=== PATIENT | female | born 1965 ===

== ENCOUNTER 2022-07-25 11:25 | Emergency (ER) | payer OTHER, SELFPAY ==
[2022-07-25] VITALS (8 sets, daily range): BP systolic 134–186; BP diastolic 64–86; PULSE 75–85; RESP 18–22; TEMP 36.6; O2SAT 96–98; BMI 27.3
--- NOTE | 2022-07-25 11:39 | DI.RAD.S_ITS ---
PROCEDURE: XR CHEST 1V INDICATIONS: Shortness of breath TECHNIQUE: One view of the chest was acquired. COMPARISON: None. FINDINGS: Surgical changes and devices: None. Lungs and pleura: Lungs are clear. No pleural effusions or pneumothorax. Mediastinum: Mediastinal contours appear normal. Heart size is normal. Bones and chest wall: No suspicious bony lesions. Overlying soft tissues appear unremarkable. IMPRESSION: No acute cardiopulmonary abnormality. Dictated by: Miguel Acosta M.D. on 07/25/2022 at 12:26 Approved by: Miguel Acosta M.D. on 07/25/2022 at 12:27
[2022-07-25 12:07] LABS: Add Manual Diff / Slide Review NO; Basophils Absolute Auto 0 /uL (0-100); Basophils Percent Auto 0.7 % (0-2); Eosinophils Absolute Auto 300 /uL (0-450); Eosinophils Percent Auto 4.5 % (2-4); Hematocrit 38.1 % (36-46); Hemoglobin 12.6 g/dL (12.0-16.0); Lymphocytes Absolute Auto 1500 /uL (1100-4500); Lymphocytes Percent Auto 21.6 % (25-40); Mean Corpuscular Hemoglobin 30.4 PG (26-34); Mean Corpuscular Volume 92.2 fL (80-100); Monocytes Absolute Auto 600 /uL (0-900); Monocytes Percent Auto 8.3 % (3-14); Neutrophils Absolute Auto 4600 /uL (1500-7000); Neutrophils Percent Auto 64.9 % (50-75); Platelet Count 278 X10^3/uL (150-400); Red Blood Cell Count 4.13 X10^6/uL (4.0-5.2); White Blood Cell Count 7.1 X10^3/uL (4.5-11.0)
[2022-07-25 12:17] LABS: Prothrombin Time 11.3 SECONDS (10.1-12.7)
[2022-07-25 12:21] LABS: Alanine Aminotransferase 26 IU/L (<35); Albumin 4.5 g/dL (3.5-5.0); Albumin Globulin Ratio 1.3 (1.0-2.8); Alkaline Phosphatase 84 U/L (38-126); Aspartate Aminotransferase 26 IU/L (14-36); Bilirubin Total 0.5 mg/dL (0.2-1.3); Blood Urea Nitrogen 15 mg/dL (7-17); Calcium 9.4 mg/dL (8.4-10.2); Carbon Dioxide 30 mmol/L (22-32); Chloride 104 mmol/L (98-107); Estimated Glomerular Filt Rate > 60 mL/min (>60); Globulin 3.6 g/dL (1.7-4.1); Glucose 93 mg/dL (70-100); HEMOLYSIS 26 (0-50); Lactate (Lactic Acid) 1.9 mmol/L (0.7-2.1); Potassium 3.9 mmol/L (3.4-5.1); Sodium 142 mmol/L (137-145); Total Protein 8.1 g/dL (6.3-8.2)
[2022-07-25 12:33] LABS: NT-proBNP (BNP-Adult 18+) 47 pg/mL (<125); Troponin I < 0.012 ng/mL (0.01-0.034)
[2022-07-25 12:49] LABS: Influenza A - CEPHEID Flu A NEGATIVE (NEGATIVE); Influenza B - CEPHEID Flu B NEGATIVE (NEGATIVE); Respiratory Syncytial Virus Negative (Negative)
[2022-07-25 12:50] LABS: COVID-19 CEPHEID 4-PLEX PCR Negative (Negative)
--- NOTE | 2022-07-25 14:25 | ED_ITS ---
HPI - Chest Pain General Chief Complaint: Chest Pain Stated Complaint: chest pain, cold and cough Time Seen by Provider: 07/25/22 11:58 Source: patient Mode of arrival: Ambulatory Limitations: no limitations History of Present Illness HPI narrative: Patient is a 57-year-old female history diabetes hypertension hyperlipidemia presenting today with chest pain and cough. She reports coughing for the last 2 days she is not coughing anything. Her cough is definitely worse night. She feels like she has pain every time she coughs, her cough has show bad that she can not sleep. She denies any significant shortness of breath. Nausea vomiting or abdominal pain. Related Data Home Medications Medication Instructions Recorded Confirmed amlodipine 10 mg tablet 10 mg PO DAILY 09/11/20 10/09/20 aspirin 81 mg tablet,delayed 81 mg PO DAILY 09/11/20 10/09/20 release atorvastatin 20 mg tablet 20 mg PO DAILY 09/11/20 10/09/20 metformin 1,000 mg tablet 1,000 mg PO BID 09/11/20 10/09/20 telmisartan 80 mg tablet (Micardis) 80 mg PO DAILY 09/11/20 10/09/20 Previous Rx's Medication Instructions Recorded albuterol sulfate 90 mcg/actuation 2 puff inhalation Q4-6H PRN 07/25/22 aerosol inhaler shortness of breath or wheezing #8.5 grams guaifenesin 600 mg tablet, 600 mg PO Q12H PRN cough #30 tabs 07/25/22 extended release 12 hr hydrocodone-homatropine 5 mg-1.5 5 ml PO Q6H PRN cough #100 mL 07/25/22 mg/5 mL (5 mL) oral syrup Allergies Allergy/AdvReac Type Severity Reaction Status Date / Time No Known Drug Allergies Allergy Unverified 10/09/20 12:58 Review of Systems Review of Systems ROS Unobtainable: All systems reviewed & are unremarkable except as noted in HPI and below Patient History Social History marital status: unknown household members: family Smoking Status: Never smoker alcohol intake: never substance use type: does not use Smoking Status: Never smoker alcohol intake frequency: 0-2 drinks per day Substance Use Type: does not use Exam Initial Vital Signs Initial Vital Signs: Vital Signs Temperature 97.9 F 07/25/22 11:29 Pulse Rate 78 07/25/22 11:29 Respiratory Rate 20 07/25/22 11:29 Blood Pressure 186/86 H 07/25/22 11:29 Pulse Oximetry 98 07/25/22 11:29 Oxygen Delivery Method Room Air 07/25/22 11:29 GENERAL: Alert pleasant 57-year-old female and in no acute distress. HEENT: Head atraumatic,EOMI, pupils reactive, face symmetric, moist mucous membranes CARDIOVASCULAR: Regular rate and rhythm without murmurs, rubs or gallops. RESPIRATORY: Breath sounds equal bilaterally, no wheezes rales or rhonchi. ABDOMEN: Soft, nontender. Normoactive bowel sounds all 4 quadrants. No guarding or rebound. EXTREMITIES: Normal range of motion, no clubbing or edema. Neurovascularly intact NEUROLOGICAL: Alert and oriented x4.Normal gait and speech. SKIN: Warm, dry, no laceration, no petechiae, no rashes or lesions. Scores HEART Score Heart Score history: Slightly Suspicious Heart Score EKG: Normal Heart Score Age: 45-64 years old Heart Score risk factors: > 3 risk factors or hx of atherosclerotic disease Heart Score troponin: < or = to normal limit Heart Score Total: 3 Course Orders Ordered: ED Orders 07/25/22 11:39 XR chest 1V Stat EKG-12 Lead Stat Measure peak expiratory flow ONCE RT Consult Eval and Treat NOW 07/25/22 11:41 Covid-19 + FLU A/B + RSV - PCR Stat 07/25/22 11:58 Complete Blood Count AUTO DIFF Stat Comprehensive Metabolic Panel Stat Lactate (Lactic Acid) Stat NT-proBNP (BNP-Adult 18+) Stat Prothrombin Time INR Stat Troponin I Stat 07/25/22 14:06 Trop I [Troponin I] Stat Vital Signs Vital signs: Vital Signs - 8 hr 07/25/22 12:30 07/25/22 12:30 07/25/22 13:00 Pulse Rate 79 Respiratory Rate 22 Blood Pressure 143/76 H 134/64 Pulse Oximetry 98 Oxygen Delivery Method 07/25/22 13:00 07/25/22 13:30 07/25/22 13:30 Pulse Rate 76 75 Respiratory Rate 21 22 Blood Pressure 137/70 Pulse Oximetry 96 97 Oxygen Delivery Method 07/25/22 14:00 07/25/22 14:00 07/25/22 14:30 Pulse Rate 78 Respiratory Rate 22 Blood Pressure 142/73 H 138/74 Pulse Oximetry 97 Oxygen Delivery Method 07/25/22 14:30 07/25/22 15:51 Pulse Rate 75 84 Respiratory Rate 21 18 Blood Pressure Pulse Oximetry 98 97 Oxygen Delivery Method Room Air MDM - Chest Pain Lab Data 07/25/22 11:58 07/25/22 11:58 Labs: Lab Results 07/25/22 07/25/22 07/25/22 Range/Units 11:41 11:58 11:58 WBC 7.1 (4.5-11.0) X10^3/uL RBC 4.13 (4.0-5.2) X10^6/uL Hgb 12.6 (12.0-16.0) g/dL Hct 38.1 (36-46) % MCV 92.2 (80-100) fL MCH 30.4 (26-34) PG MCHC 33.0 (30-36) % RDW 13.0 (11.6-14.8) % Plt Count 278 (150-400) X10^3/uL Neut % (Auto) 64.9 (50-75) % Lymph % (Auto) 21.6 L (25-40) % [place] % (Auto) 8.3 (3-14) % Eos % (Auto) 4.5 H (2-4) % Baso % (Auto) 0.7 (0-2) % Neut # (Auto) 4600 (5988-1404) /uL Lymph # (Auto) 1500 (7515-0456) /uL [place] # (Auto) 600 (0-900) /uL Eos # (Auto) 300 (0-450) /uL Baso # (Auto) 0 (0-100) /uL PT 11.3 (10.1-12.7) SECONDS INR 1.0 (0.9-1.3) Sodium (137-145) mmol/L Potassium (3.4-5.1) mmol/L Chloride (98-107) mmol/L Carbon Dioxide (22-32) mmol/L BUN (7-17) mg/dL Creatinine (0.52-1.04) mg/dL Estimated GFR (>60) mL/min BUN/Creatinine Ratio (6-22) Glucose (70-100) mg/dL Lactate (0.7-2.1) mmol/L Calcium (8.4-10.2) mg/dL Total Bilirubin (0.2-1.3) mg/dL AST (14-36) IU/L ALT (<35) IU/L Alkaline Phosphatase (38-126) U/L Troponin I (0.01-0.034) ng/mL NT-Pro-B Natriuret Pep (<125) pg/mL Total Protein (6.3-8.2) g/dL Albumin (3.5-5.0) g/dL Globulin (1.7-4.1) g/dL Albumin/Globulin Ratio (1.0-2.8) SARS-CoV-2 (PCR) Negative (Negative) Influenza A (RT-PCR) Flu a negative (NEGATIVE) Influenza B (RT-PCR) Flu b negative (NEGATIVE) RSV (PCR) Negative (Negative) 07/25/22 07/25/22 07/25/22 Range/Units 11:58 11:58 14:06 WBC (4.5-11.0) X10^3/uL RBC (4.0-5.2) X10^6/uL Hgb (12.0-16.0) g/dL Hct (36-46) % MCV (80-100) fL MCH (26-34) PG MCHC (30-36) % RDW (11.6-14.8) % Plt Count (150-400) X10^3/uL Neut % (Auto) (50-75) % Lymph % (Auto) (25-40) % [place] % (Auto) (3-14) % Eos % (Auto) (2-4) % Baso % (Auto) (0-2) % Neut # (Auto) (5299-6437) /uL Lymph # (Auto) (2520-8115) /uL [place] # (Auto) (0-900) /uL Eos # (Auto) (0-450) /uL Baso # (Auto) (0-100) /uL PT (10.1-12.7) SECONDS INR (0.9-1.3) Sodium 142 (137-145) mmol/L Potassium 3.9 (3.4-5.1) mmol/L Chloride 104 (98-107) mmol/L Carbon Dioxide 30 (22-32) mmol/L BUN 15 (7-17) mg/dL Creatinine 0.50 L (0.52-1.04) mg/dL Estimated GFR > 60 (>60) mL/min BUN/Creatinine Ratio 30.0 H (6-22) Glucose 93 (70-100) mg/dL Lactate 1.9 (0.7-2.1) mmol/L Calcium 9.4 (8.4-10.2) mg/dL Total Bilirubin 0.5 (0.2-1.3) mg/dL AST 26 (14-36) IU/L ALT 26 (<35) IU/L Alkaline Phosphatase 84 (38-126) U/L Troponin I < 0.012 < 0.012 (0.01-0.034) ng/mL NT-Pro-B Natriuret Pep 47 (<125) pg/mL Total Protein 8.1 (6.3-8.2) g/dL Albumin 4.5 (3.5-5.0) g/dL Globulin 3.6 (1.7-4.1) g/dL Albumin/Globulin Ratio 1.3 (1.0-2.8) SARS-CoV-2 (PCR) (Negative) Influenza A (RT-PCR) (NEGATIVE) Influenza B (RT-PCR) (NEGATIVE) RSV (PCR) (Negative) Imaging Data Chest x-ray: Radiologist's Impression: PROCEDURE:? XR CHEST 1V ? INDICATIONS:? Shortness of breath ? TECHNIQUE:? One view of the chest was acquired.? ? COMPARISON:? None. ? FINDINGS:? ? Surgical changes and devices:? None.? ? Lungs and pleura:? Lungs are clear.? No pleural effusions or pneumothorax.? ? Mediastinum:? Mediastinal contours appear normal.? Heart size is normal.? ? Bones and chest wall:? No suspicious bony lesions.? Overlying soft tissues appear unremarkable.? ? IMPRESSION:? No acute cardiopulmonary abnormality. ? ? ? Dictated by: Miguel Acosta M.D. on 07/25/2022 at 12:26 ? ? ECG Data Interpretation: Normal sinus rhythm rate 79 MO interval 160 QRS [address] changes no T- wave inversions Q-waves noted in lead 3, no priors to compare MDM Narrative Medical decision making narrative: Recent 57 old female history of hypertension diabetes hyperlipidemia presenting today with cough and chest pain. She has had nonproductive cough ongoing for the last 2-3 days worse at night. No evidence of sepsis or infection. Blood work is overall reassuring 2- troponins no EKG changes chest x-ray does not show any abnormality. No need for antibiotics. Probable viral syndrome. Pulmonary embolism was considered however seems unlikely given cough and infectious like symptoms. Supportive care only. Discharge Plan Departure Patient Disposition: Home Clinical Impression: Upper respiratory infection Instructions: DI for Viral Upper Respiratory Infection -- Adult Activity Restrictions/Additional Instructions: *You have been diagnosed with upper respiratory infection *What to do: At this time you likely have a viral infection there is no need for antibiotics. Rest and hydrate. *Continue to take medications as directed--> SENT TO [facility] Guaifenesin 600 mg every 12 hours Albuterol 1-2 puffs with spacer if needed for coughing spell Cough syrup 5 mL every 6 hours only as needed for severe coughing or at nighttime to help you sleep *Follow up with your primary care provider in 2-3 days or call [phone] *Return to ER if you should have increasing shortness of breath, worsening cough, fever[or] any new, worsening or concerning symptoms CONTROLLED SUBSTANCE DISCHARGE (Narcotoic/benzodiazepine/Flexeril/Phenergan) 1. You have been prescribed narcotic medications, it does have acetaminophen/Tylenol/paracetamol in it, DO NOT TAKE MORE THAN 4,00mg in 24 hours of Tylenol. TRAMADOL DOES NOT CONTAIN TYLENOL 2. Please understand that we cannot provide further refills of narcotics, benzodiazepines or controlled substances through the ED and her pain management will need to be through your provider. 3. While on these medications you cannot drive or operate heavy machinery. 4. You cannot sign legal documents or perform any duties such as this. 5. As long as you're taking opiate pain medications he should also be taking a stool softener such as Colace, Dulcolax, MiraLAX or prune juice, to help avoid constipation. Prescriptions: New hydrocodone-homatropine 5-1.5 mg/5 mL (5 mL) syrup 5 ml PO Q6H PRN (Reason: cough) Qty: 100 0RF guaifenesin 600 mg tablet extended release 12hr 600 mg PO Q12H PRN (Reason: cough) Qty: 30 0RF albuterol sulfate 90 mcg/actuation HFA aerosol inhaler 2 puff inhalation Q4-6H PRN (Reason: shortness of breath or wheezing) Qty: 8.5 0RF No Action metformin 1,000 mg tablet 1,000 mg PO BID telmisartan [Micardis] 80 mg tablet 80 mg PO DAILY amlodipine 10 mg tablet 10 mg PO DAILY atorvastatin 20 mg tablet 20 mg PO DAILY aspirin 81 mg tablet,delayed release (DR/EC) 81 mg PO DAILY Stand Alone Forms: Patient Portal/API, Work Release Note
[2022-07-25 14:45] LABS: Troponin I < 0.012 ng/mL (0.01-0.034)
== END 2022-07-25 16:01 | disposition home or self-care (01) ==
PROVIDERS: Emergency Provider Emergency Medicine
DX: J06.9 Acute upper respiratory infection, unspecified (principal); R05.9 Cough, unspecified; R06.02 Shortness of breath; Z20.822 Contact with and (suspected) exposure to COVID-19
CPT/HCPCS: 0241U; 36415; 71045; 80053; 83605; 83880; 84484; 85025; 85610; 93005; 99283; 99284

== ENCOUNTER 2022-08-09 10:51 | Emergency (ER) | payer OTHER, SELFPAY ==
[2022-08-09] VITALS (8 sets, daily range): BP systolic 117–147; BP diastolic 56–77; PULSE 74–92; RESP 16–18; TEMP 36.3; O2SAT 96–99; BMI 29.2
--- NOTE | 2022-08-09 11:20 | ED.GENADULT ---
HPI - General Adult General Chief complaint: Dizziness Stated complaint: dizzy/V T-2 Time Seen by Provider: 08/09/22 11:03 Source: patient Mode of arrival: Ambulatory History of Present Illness HPI narrative: Patient is a 57-year-old female who is here for evaluation of dizziness and vomiting. She states it has been going on for the past 2 days. Mostly in the morning. She did vomit yesterday but not today. She states that it did wake her up from sleep. After she vomited yesterday her symptoms improved. She did not have chest pain or palpitations or headache or vision changes or speech difficulties or numbness and tingling in her upper extremities. When the symptoms occurred this morning she tried to contact her primary doctor told her to come to the emergency department. Currently she states she does feel somewhat dizzy but it is improved. She has no other associated symptoms. Has never had this in the past. Related Data Home Medications Medication Instructions Recorded Confirmed amlodipine 10 mg tablet 10 mg PO DAILY 09/11/20 10/09/20 aspirin 81 mg tablet,delayed 81 mg PO DAILY 09/11/20 10/09/20 release atorvastatin 20 mg tablet 20 mg PO DAILY 09/11/20 10/09/20 metformin 1,000 mg tablet 1,000 mg PO BID 09/11/20 10/09/20 telmisartan 80 mg tablet (Micardis) 80 mg PO DAILY 09/11/20 10/09/20 Previous Rx's Medication Instructions Recorded albuterol sulfate 90 mcg/actuation 2 puff inhalation Q4-6H PRN 07/25/22 aerosol inhaler shortness of breath or wheezing #8.5 grams guaifenesin 600 mg tablet, 600 mg PO Q12H PRN cough #30 tabs 07/25/22 extended release 12 hr hydrocodone-homatropine 5 mg-1.5 5 ml PO Q6H PRN cough #100 mL 07/25/22 mg/5 mL (5 mL) oral syrup meclizine 25 mg tablet 25 mg PO BID PRN dizziness #14 tabs 08/09/22 Allergies Allergy/AdvReac Type Severity Reaction Status Date / Time No Known Drug Allergies Allergy Unverified 10/09/20 12:58 Review of Systems Constitutional Constitutional: Reports system reviewed and no additional complaints, except as documented Cardiovascular Cardiovascular: Reports system reviewed and no additional complaints, except as documented Respiratory Respiratory: Reports system reviewed and no additional complaints, except as documented Gastrointestinal Gastrointestinal: Reports system reviewed and no additional complaints, except as documented Integumentary/Breasts Skin/Breast: Reports system reviewed and no additional complaints, except as documented Neurologic Neurologic: Reports system reviewed and no additional complaints, except as documented Hematologic/Lymphatic On Anticoagulants: No Patient History Social History marital status: unknown household members: family Smoking Status: Never smoker alcohol intake: never substance use type: does not use Smoking Status: Never smoker alcohol intake frequency: 0-2 drinks per day Substance Use Type: does not use Exam Initial Vital Signs Initial Vital Signs: Vital Signs Pulse Rate 92 H 08/09/22 10:56 Pulse Oximetry 96 08/09/22 10:56 HENMT Head: normal to inspection and normocephalic Resp Effort & Inspection: normal respiratory effort Auscultation: clear to auscultation bilaterally Cardio Rate: regular rate Rhythm: regular rhythm GI Inspection: normal to inspection Palpation: soft and No tender Skin General: no rashes or lesions noted Neuro General: patient alert, patient awake, patient oriented x3 and moves all extremities Cranial Nerves: CN's II-XI intact bilaterally Speech: speech normal Gait: normal gait Other: [place]-Hallpike maneuver was positive to the right Extrem General: normal to inspection and capillary refill normal Psych Appearance: grossly normal and well kempt Course Orders Ordered: ED Orders 08/09/22 11:04 Basic Metabolic Panel Stat Complete Blood Count AUTO DIFF Stat Troponin & CK Cardiac Panel Stat 08/09/22 11:21 EKG-12 Lead Stat Discontinued Medications Meclizine HCl (Meclizine Hcl 12.5 Mg Tablet) 25 mg PO NOW ONE Stop: 08/09/22 11:21 Last Admin: 08/09/22 11:27 Dose: 25 mg Documented By: AT Vital Signs Vital signs: Vital Signs - 8 hr 08/09/22 11:03 08/09/22 10:56 08/09/22 10:57 Temperature 97.4 F L Pulse Rate 88 92 H Respiratory Rate 18 Blood Pressure 147/77 H 147/77 H Pulse Oximetry 99 96 Oxygen Delivery Method Room Air 08/09/22 10:57 08/09/22 11:00 08/09/22 11:30 Temperature Pulse Rate 81 89 Respiratory Rate Blood Pressure 118/64 Pulse Oximetry 97 97 Oxygen Delivery Method Room Air 08/09/22 11:30 08/09/22 12:00 08/09/22 12:00 Temperature Pulse Rate 87 79 Respiratory Rate Blood Pressure 119/56 L Pulse Oximetry 96 96 Oxygen Delivery Method Room Air Room Air 08/09/22 12:30 08/09/22 12:30 08/09/22 13:00 Temperature Pulse Rate 83 Respiratory Rate Blood Pressure 117/61 131/69 Pulse Oximetry 97 Oxygen Delivery Method Room Air 08/09/22 13:00 Temperature Pulse Rate 74 Respiratory Rate 16 Blood Pressure Pulse Oximetry 96 Oxygen Delivery Method Room Air Medical Decision Making Lab Data Lab results reviewed: Yes I reviewed the patient's lab results. 08/09/22 11:04 08/09/22 11:04 Labs: Lab Results 08/09/22 08/09/22 08/09/22 Range/Units 11:04 11:04 11:04 WBC 10.1 (4.5-11.0) X10^3/uL RBC 4.46 (4.0-5.2) X10^6/uL Hgb 13.5 (12.0-16.0) g/dL Hct 41.1 (36-46) % MCV 92.2 (80-100) fL MCH 30.4 (26-34) PG MCHC 32.9 (30-36) % RDW 13.2 (11.6-14.8) % Plt Count 308 (150-400) X10^3/uL Neut % (Auto) 82.4 H (50-75) % Lymph % (Auto) 11.8 L (25-40) % [place] % (Auto) 4.6 (3-14) % Eos % (Auto) 0.5 L (2-4) % Baso % (Auto) 0.7 (0-2) % Neut # (Auto) 8300 H (3427-0836) /uL Lymph # (Auto) 1200 (3622-6815) /uL [place] # (Auto) 500 (0-900) /uL Eos # (Auto) 100 (0-450) /uL Baso # (Auto) 100 (0-100) /uL Sodium 138 (137-145) mmol/L Potassium 3.9 (3.4-5.1) mmol/L Chloride 99 (98-107) mmol/L Carbon Dioxide 27 (22-32) mmol/L BUN 15 (7-17) mg/dL Creatinine 0.58 (0.52-1.04) mg/dL Estimated GFR > 60 (>60) mL/min BUN/Creatinine Ratio 25.9 H (6-22) Glucose 126 H (70-100) mg/dL Calcium 9.6 (8.4-10.2) mg/dL Total Creatine Kinase 84 (30-135) U/L CK-MB (CK-2) TNP CK-MB (CK-2) Rel Index TNP Troponin I < 0.012 (0.01-0.034) ng/mL ECG Data Attestation: I personally reviewed and interpreted this ECG as follows: Interpretation: Sinus rhythm Ventricular rate is 77 Normal axis Normal QRS Normal QTC No ST T wave changes MDM Narrative Medical decision making narrative: Patient states that she does have improvement of her symptoms after the meclizine. It is reproducible with a positive [place]-Hallpike to the right. I have low suspicion for central vertigo. Our suspicion that this is peripheral given the fact that it woke her from sleep and it is reproducible. Her labs are unremarkable. Will discharge home with meclizine. She was given return precautions. She expressed understanding and agreement. Discharge Plan Departure Patient Disposition: Home Clinical Impression: Vertigo Instructions: DI for Vertigo Activity Restrictions/Additional Instructions: I do recommend that you continue to take all of your medications as directed. Contact your primary doctor for follow-up. Return to the emergency department for any new or worsening symptoms. Prescriptions: New meclizine 25 mg tablet 25 mg PO BID PRN (Reason: dizziness) Qty: 14 0RF No Action metformin 1,000 mg tablet 1,000 mg PO BID telmisartan [Micardis] 80 mg tablet 80 mg PO DAILY amlodipine 10 mg tablet 10 mg PO DAILY atorvastatin 20 mg tablet 20 mg PO DAILY aspirin 81 mg tablet,delayed release (DR/EC) 81 mg PO DAILY hydrocodone-homatropine 5-1.5 mg/5 mL (5 mL) syrup 5 ml PO Q6H PRN (Reason: cough) Qty: 100 0RF guaifenesin 600 mg tablet extended release 12hr 600 mg PO Q12H PRN (Reason: cough) Qty: 30 0RF albuterol sulfate 90 mcg/actuation HFA aerosol inhaler 2 puff inhalation Q4-6H PRN (Reason: shortness of breath or wheezing) Qty: 8.5 0RF Referrals: ProviderDinesh [Primary Care Provider] - Stand Alone Forms: Patient Portal/API, Work Release Note
[2022-08-09] MEDS: MECLIZINE HCL 12.5 MG TABLET 25 MG PO (11:27)
[2022-08-09 11:28] LABS: Add Manual Diff / Slide Review NO; Basophils Absolute Auto 100 /uL (0-100); Basophils Percent Auto 0.7 % (0-2); Eosinophils Absolute Auto 100 /uL (0-450); Eosinophils Percent Auto 0.5 % (2-4); Hematocrit 41.1 % (36-46); Hemoglobin 13.5 g/dL (12.0-16.0); Lymphocytes Absolute Auto 1200 /uL (1100-4500); Lymphocytes Percent Auto 11.8 % (25-40); Mean Corpuscular HGB Conc 32.9 % (30-36); Mean Corpuscular Hemoglobin 30.4 PG (26-34); Mean Corpuscular Volume 92.2 fL (80-100); Monocytes Absolute Auto 500 /uL (0-900); Monocytes Percent Auto 4.6 % (3-14); Neutrophils Absolute Auto 8300 /uL (1500-7000); Neutrophils Percent Auto 82.4 % (50-75); Platelet Count 308 X10^3/uL (150-400); Red Blood Cell Count 4.46 X10^6/uL (4.0-5.2); Red Cell Distribution Width 13.2 % (11.6-14.8); White Blood Cell Count 10.1 X10^3/uL (4.5-11.0)
[2022-08-09 11:36] LABS: BUN Creatinine Ratio 25.9 (6-22); Blood Urea Nitrogen 15 mg/dL (7-17); Calcium 9.6 mg/dL (8.4-10.2); Carbon Dioxide 27 mmol/L (22-32); Chloride 99 mmol/L (98-107); Creatine Kinase 84 U/L (30-135); Estimated Glomerular Filt Rate > 60 mL/min (>60); Glucose 126 mg/dL (70-100); HEMOLYSIS 18 (0-50); Potassium 3.9 mmol/L (3.4-5.1); Sodium 138 mmol/L (137-145)
[2022-08-09 11:48] LABS: Troponin I < 0.012 ng/mL (0.01-0.034)
--- NOTE | 2022-08-09 12:35 | PC.NURSE ---
Pt reports improvement in dizziness since arrival.
== END 2022-08-09 13:28 | disposition home or self-care (01) ==
PROVIDERS: Emergency Provider Emergency Medicine
DX: R42 Dizziness and giddiness (principal); R03.0 Elevated blood-pressure reading, without diagnosis of hypertension
CPT/HCPCS: 36415; 80048; 82550; 84484; 85025; 93005; 93010; 99283

== ENCOUNTER 2022-08-12 09:24 | Emergency (ER) | payer OTHER, SELFPAY ==
[2022-08-12] VITALS (11 sets, daily range): BP systolic 107–146; BP diastolic 56–74; PULSE 62–88; RESP 18; TEMP 36.6; O2SAT 95–100
[2022-08-12 12:01] LABS: Add Manual Diff / Slide Review NO; Basophils Absolute Auto 100 /uL (0-100); Basophils Percent Auto 0.6 % (0-2); Eosinophils Absolute Auto 100 /uL (0-450); Eosinophils Percent Auto 0.6 % (2-4); Hemoglobin 13.2 g/dL (12.0-16.0); Lymphocytes Absolute Auto 1200 /uL (1100-4500); Lymphocytes Percent Auto 11.9 % (25-40); Mean Corpuscular Hemoglobin 31.2 PG (26-34); Mean Corpuscular Volume 91.8 fL (80-100); Monocytes Absolute Auto 500 /uL (0-900); Monocytes Percent Auto 5.2 % (3-14); Neutrophils Absolute Auto 8500 /uL (1500-7000); Neutrophils Percent Auto 81.7 % (50-75); Platelet Count 264 X10^3/uL (150-400); Red Blood Cell Count 4.24 X10^6/uL (4.0-5.2); White Blood Cell Count 10.5 X10^3/uL (4.5-11.0)
[2022-08-12 12:06] LABS: INR 1.1 (0.9-1.3); Prothrombin Time 12.1 SECONDS (10.1-12.7)
[2022-08-12 12:10] LABS: Alanine Aminotransferase 25 IU/L (<35); Albumin 4.5 g/dL (3.5-5.0); Albumin Globulin Ratio 1.3 (1.0-2.8); Alkaline Phosphatase 74 U/L (38-126); Aspartate Aminotransferase 22 IU/L (14-36); BUN Creatinine Ratio 28.1 (6-22); Blood Urea Nitrogen 16 mg/dL (7-17); Calcium 9.2 mg/dL (8.4-10.2); Carbon Dioxide 32 mmol/L (22-32); Chloride 97 mmol/L (98-107); Creatine Kinase 47 U/L (30-135); Estimated Glomerular Filt Rate > 60 mL/min (>60); Globulin 3.5 g/dL (1.7-4.1); Glucose 131 mg/dL (70-100); HEMOLYSIS < 15 (0-50); Potassium 4.1 mmol/L (3.4-5.1); Sodium 138 mmol/L (137-145)
[2022-08-12 12:22] LABS: Troponin I < 0.012 ng/mL (0.01-0.034)
--- NOTE | 2022-08-12 13:29 | ED_ITS ---
HPI - Dizziness General Chief Complaint: Dizziness Stated Complaint: Vertigo & weakness Time Seen by Provider: 08/12/22 12:08 Source: patient and EMS Mode of arrival: EMS History of Present Illness HPI Narrative: 57-year-old female presenting with vertiginous symptoms and generalized weakness/lightheadedness. Patient reports prior similar episodes have occurred, most recently days prior to presentation where she was evaluated in the em ergency department. Patient denies focal weakness or numbness, no difficulty with ambulation. Patient reports multiple prior similar episodes. Related Data Home Medications Medication Instructions Recorded Confirmed amlodipine 10 mg tablet 10 mg PO DAILY 09/11/20 10/09/20 aspirin 81 mg tablet,delayed 81 mg PO DAILY 09/11/20 10/09/20 release atorvastatin 20 mg tablet 20 mg PO DAILY 09/11/20 10/09/20 metformin 1,000 mg tablet 1,000 mg PO BID 09/11/20 10/09/20 telmisartan 80 mg tablet (Micardis) 80 mg PO DAILY 09/11/20 10/09/20 Previous Rx's Medication Instructions Recorded albuterol sulfate 90 mcg/actuation 2 puff inhalation Q4-6H PRN 07/25/22 aerosol inhaler shortness of breath or wheezing #8.5 grams guaifenesin 600 mg tablet, 600 mg PO Q12H PRN cough #30 tabs 07/25/22 extended release 12 hr hydrocodone-homatropine 5 mg-1.5 5 ml PO Q6H PRN cough #100 mL 07/25/22 mg/5 mL (5 mL) oral syrup meclizine 25 mg tablet 25 mg PO BID PRN dizziness #14 tabs 08/09/22 ondansetron 4 mg disintegrating 4 mg PO Q8H PRN nausea and 08/12/22 tablet vomiting #7 tabs Allergies Allergy/AdvReac Type Severity Reaction Status Date / Time No Known Drug Allergies Allergy Verified 08/12/22 09:30 Patient History Social History marital status: unknown household members: family Smoking Status: Never smoker alcohol intake: never substance use type: does not use Smoking Status: Never smoker alcohol intake frequency: 0-2 drinks per day Substance Use Type: does not use Exam Narrative Exam Narrative: Vitals reviewed. Nursing note reviewed Constitutional: interactive HENT: Moist mucous membranes EYES: No scleral icterus NECK: no masses CV: Well perfused peripherally, no cyanosis present PULM: Unlabored respirations, symmetric chest rise ABD: Non-distended MS: No gross deformities, no asymmetric edema noted SKIN: Warm and dry. PSYCH: Appropriate affect NEURO: Follows simple commands, moves extremities, interactive with exam, symmetric strength and sensation in the bilateral upper and lower extremities, no facial asymmetry, symmetric facial sensation, palate elevates symmetrically, tongue protrudes midline, extraocular movements are intact, pupils are round and reactive, no nystagmus Initial Vital Signs Initial Vital Signs: Vital Signs Temperature 98 F 08/12/22 09:26 Pulse Rate 74 08/12/22 09:26 Respiratory Rate 18 08/12/22 09:26 Blood Pressure 107/63 08/12/22 09:26 Pulse Oximetry 99 08/12/22 09:26 Oxygen Delivery Method Room Air 08/12/22 09:26 Course Orders Ordered: Discontinued Medications Sodium Chloride (Normal Saline 0.9%) 500 mls @ 1,000 mls/hr IV BOLUS ONE Stop: 08/12/22 13:58 Last Infusion: 08/12/22 15:30 Dose: 0 mls/hr Documented By: Admin: 08/12/22 14:08 Dose: 1,000 mls/hr Documented By: BISI Meclizine HCl (Meclizine Hcl 12.5 Mg Tablet) 25 mg PO NOW ONE Stop: 08/12/22 13:30 Last Admin: 08/12/22 13:42 Dose: 25 mg Documented By: BISI Vital Signs Vital signs: Vital Signs - 8 hr 08/12/22 09:26 Temperature 98 F Pulse Rate 74 Respiratory Rate 18 Blood Pressure 107/63 Pulse Oximetry 99 Oxygen Delivery Method Room Air MDM - Dizziness Lab Data 08/12/22 11:55 08/12/22 11:55 Labs: Lab Results 08/12/22 08/12/22 08/12/22 Range/Units 11:55 11:55 11:55 WBC 10.5 (4.5-11.0) X10^3/uL RBC 4.24 (4.0-5.2) X10^6/uL Hgb 13.2 (12.0-16.0) g/dL Hct 39.0 (36-46) % MCV 91.8 (80-100) fL MCH 31.2 (26-34) PG MCHC 34.0 (30-36) % RDW 13.0 (11.6-14.8) % Plt Count 264 (150-400) X10^3/uL Neut % (Auto) 81.7 H (50-75) % Lymph % (Auto) 11.9 L (25-40) % Franklin % (Auto) 5.2 (3-14) % Eos % (Auto) 0.6 L (2-4) % Baso % (Auto) 0.6 (0-2) % Neut # (Auto) 8500 H (2243-1622) /uL Lymph # (Auto) 1200 (0267-6622) /uL Franklin # (Auto) 500 (0-900) /uL Eos # (Auto) 100 (0-450) /uL Baso # (Auto) 100 (0-100) /uL PT 12.1 (10.1-12.7) SECONDS INR 1.1 (0.9-1.3) Sodium 138 (137-145) mmol/L Potassium 4.1 (3.4-5.1) mmol/L Chloride 97 L (98-107) mmol/L Carbon Dioxide 32 (22-32) mmol/L BUN 16 (7-17) mg/dL Creatinine 0.57 (0.52-1.04) mg/dL Estimated GFR > 60 (>60) mL/min BUN/Creatinine Ratio 28.1 H (6-22) Glucose 131 H (70-100) mg/dL Calcium 9.2 (8.4-10.2) mg/dL Total Bilirubin 1.0 (0.2-1.3) mg/dL AST 22 (14-36) IU/L ALT 25 (<35) IU/L Alkaline Phosphatase 74 (38-126) U/L Total Creatine Kinase 47 (30-135) U/L CK-MB (CK-2) TNP CK-MB (CK-2) Rel Index TNP Troponin I < 0.012 (0.01-0.034) ng/mL Total Protein 8.0 (6.3-8.2) g/dL Albumin 4.5 (3.5-5.0) g/dL Globulin 3.5 (1.7-4.1) g/dL Albumin/Globulin Ratio 1.3 (1.0-2.8) [facility] Narrative Medical decision making narrative: 57-year-old female presenting with vertiginous symptoms in the setting of multiple prior episodes of vertigo. Vital signs on presentation notable for mild hypertension, otherwise reassuring. Physical exam notable for well- appearing 57-year-old female who is in no acute distress, reassuring cardiopulmonary exam, benign abdomen, no focal neurologic deficits. Initial concern for CVA versus TIA versus peripheral vertigo, medication effect, electrolyte abnormality, metabolic derangement, mass lesion. Patient with multiple prior episodes of similar symptoms arguing against CVA/TIA. Given patient has been diagnosed with vertigo in the past, suspect recurrent episode. Broad screening labs were obtained and without clear evidence of significant electrolyte derangements, no leukocytosis or significant left shift. EKG without evidence of acute ischemia, troponin undetectable in the emergency department, patient without active chest pain or shortness of breath arguing against ACS. Patient was treated symptomatically in the emergency department and reassessed. On repeat assessment, patient is able to ambulate without difficulty, symptoms have improved. Discussed plan for discharge and close outpatient follow up with return to the emergency department with any new or worsening symptoms. Patient agreed with this plan and was subsequently discharged in stable condition. Discharge Plan Departure Patient Disposition: Home Clinical Impression: Vertigo Instructions: DI for Vertigo Prescriptions: New ondansetron 4 mg tablet,disintegrating 4 mg PO Q8H PRN (Reason: nausea and vomiting) Qty: 7 0RF No Action metformin 1,000 mg tablet 1,000 mg PO BID telmisartan [Micardis] 80 mg tablet 80 mg PO DAILY amlodipine 10 mg tablet 10 mg PO DAILY atorvastatin 20 mg tablet 20 mg PO DAILY aspirin 81 mg tablet,delayed release (DR/EC) 81 mg PO DAILY meclizine 25 mg tablet 25 mg PO BID PRN (Reason: dizziness) Qty: 14 0RF hydrocodone-homatropine 5-1.5 mg/5 mL (5 mL) syrup 5 ml PO Q6H PRN (Reason: cough) Qty: 100 0RF guaifenesin 600 mg tablet extended release 12hr 600 mg PO Q12H PRN (Reason: cough) Qty: 30 0RF albuterol sulfate 90 mcg/actuation HFA aerosol inhaler 2 puff inhalation Q4-6H PRN (Reason: shortness of breath or wheezing) Qty: 8.5 0RF Referrals: ProviderDinesh [Primary Care Provider] - Stand Alone Forms: Patient Portal/API, Work Release Note
[2022-08-12] MEDS: MECLIZINE HCL 12.5 MG TABLET 25 MG PO (13:42)
[2022-08-12] MEDS: SODIUM CHLORIDE 0.9% 500 ML 1000 ML IV (14:08)
--- NOTE | 2022-08-12 14:57 | PC.NURSE ---
Unsteady gait because of painful left ankle that is unrelated to why patient came in
== END 2022-08-12 15:45 | disposition home or self-care (01) ==
PROVIDERS: Emergency Provider Emergency Medicine
DX: R42 Dizziness and giddiness (principal); R07.9 Chest pain, unspecified
CPT/HCPCS: 80053; 82550; 84484; 85025; 85610; 93005; 93010; 99284

== ENCOUNTER → 2022-08-14 13:15 | Outpatient (CLI) | payer OTHER, SELFPAY ==
--- NOTE | 2022-08-14 13:17 | DI.MRI.S_ITS ---
PROCEDURE: MR ANKLE LT WO CON INDICATIONS: Left Ankle Pain TECHNIQUE: Noncontrast sagittal T1 spin echo and T2 fast spin echo with fat saturation, axial proton density fast spin echo and T2 fast spin echo with fat saturation, coronal T1 spin echo and T2 fast spin echo with fat saturation through the ankle/hindfoot. COMPARISON: None. FINDINGS: Image quality: Excellent. Imaging finding shows a moderate amount of edematous changes subcutaneous tissues medial to the medial malleolus. There is some increased signal within the tibial navicular ligament consistent with a strain however I do not identify a full-thickness tear. There is some mild to moderate tenosynovitis involving the posterior tibial tendon and flexor digitorum longus tendons. There is some marrow edema present involving the anterior aspect of the calcaneus at the calcaneal cuboid joint as well as the inferior aspect of the talus along the posterior talonavicular joint suggesting bony contusions. There is a small to moderate-sized ankle joint effusion and a small subtalar joint effusion present. Of note there is some mild to moderate thickening of the Achilles tendon in its midportion consistent with tendinopathy. I do not see evidence for any significant osteochondral defect. There is a calcaneal heel spur present with some thickening involving the proximal plantar fascia without significant edematous changes in this region at the present time. No loculated fluid collection or soft tissue masses are seen. Musculature appears within normal limits. Impression: 1. Moderate edematous changes in the subcutaneous tissues along the medial aspect of the ankle. 2. Increased signal present within the tibial navicular ligament consisting a strain with no full-thickness tear identified. 3. Mild to moderate tenosynovitis involving the posterior tibial tendon and flexor digitorum longus tendon. 4. Mild to moderate thickening of the Achilles tendon in its mid substance consistent with tendinopathy. 5. Small to moderate size ankle joint effusion. 6. Small subtalar joint effusion. 7. Small marrow contusions involving the calcaneus at the calcaneal cuboid joint and involving the inferior aspect of the talus at the posterior talar navicular joint. Dictated by: Felice Cao M.D. on 08/16/2022 at 10:24 Approved by: Felice Cao M.D. on 08/16/2022 at 10:48
== END ==
PROVIDERS: Referring Provider Student in an Organized Health Care Education/Training Program; Visit Provider Student in an Organized Health Care Education/Training Program
DX: M25.572 Pain in left ankle and joints of left foot (principal); M65.9 Synovitis and tenosynovitis, unspecified; M25.472 Effusion, left ankle; T14.8XXA Other injury of unspecified body region, initial encounter
CPT/HCPCS: 73721

== ENCOUNTER → 2024-11-23 13:20 | Outpatient (CLI) | payer OTHER, SELFPAY ==
--- NOTE | 2024-11-23 13:22 | DI.RAD.S_ITS ---
PROCEDURE: XR ANKLE LT MIN 3V INDICATIONS: Foot swelling TECHNIQUE: 3 views of the ankle were acquired. COMPARISON: None. FINDINGS: Bones: No fractures or dislocations. Chronic appearing osseous fragment at the tip of the medial malleolus. Ankle mortise is normally aligned. No suspicious bony lesions. Plantar and posterior calcaneal enthesophytes. Soft tissues: No tibiotalar joint effusion. Achilles tendon appears normal. IMPRESSION: No acute osseous abnormalities. Dictated by: Miguelito Bhatt M.D. on 11/24/2024 at 16:01 Approved by: Miguelito Bhatt M.D. on 11/24/2024 at 16:01
--- NOTE | 2024-11-23 13:22 | DI.RAD.S_ITS ---
PROCEDURE: XR FOOT LT MIN 3V INDICATIONS: Foot swelling TECHNIQUE: 3 views of the foot were acquired. COMPARISON: None. FINDINGS: Bones: No fractures or dislocations. Mild hallux valgus angulation of the 1st MTP joint with medial bunion formation. 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 No suspicious bony lesions. Mild plantar and posterior calcaneal enthesophytes. Soft tissues: No tibiotalar joint effusion. Achilles tendon appears normal. 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 Dictated by: Miguelito Bhatt M.D. on 11/24/2024 at 16:02 Approved by: Miguelito Bhatt M.D. on 11/24/2024 at 16:02
== END ==
PROVIDERS: Referring Provider Nurse Practitioner Family; Visit Provider Nurse Practitioner Family
DX: M19.072 Primary osteoarthritis, left ankle and foot (principal); M20.12 Hallux valgus (acquired), left foot; M21.612 Bunion of left foot; M79.89 Other specified soft tissue disorders
CPT/HCPCS: 73610; 73630